=== PATIENT | female | born 1945 | race Caucasian/White ===

== ENCOUNTER → 2017-09-11 | Outpatient (CLI) | payer MEDICARE, OTHER ==
[~2017-09-11] MED LIST: B12INJ SQ; CIPRO250 M1 PO; EXCEDRIN CAPLE1 EACH PO; GLUCOSAMINE1000 MG PO; GRAPE SEED25 MG PO; LEVOXYL75 MCG PO; MULTIVITAMINS PO; PHENERGAN 25 MG25 MG PO; PYRIDIUM200 MG PO; VICODIN 5-5001 EACH PO
== END ==
LOC: M.RAD 16:06
DX: M79.672 Pain in left foot (principal); M79.675 Pain in left toe(s); E03.9 Hypothyroidism, unspecified

== ENCOUNTER → 2019-01-19 | Outpatient (CLI) | payer MEDICARE, OTHER | LOC: M.RAD 15:47 | DX: R07.81 Pleurodynia (principal); Z88.8 Allergy status to other drugs, medicaments and biological substances; Z88.0 Allergy status to penicillin ==